=== PATIENT | female | born 1990 ===

== ENCOUNTER 2017-06-13 13:40 | Emergency (ER) | payer MEDICAID ==
[2017-06-13 13:50] VITALS: BP 104/70; RESP 18; TEMP 98; O2SAT 99
[2017-06-13] MEDS ORDERED: Dexamethasone 10 MG in Sodium Chloride 0.9% 50 ML IVPB STA (14:56)
[2017-06-13] MEDS ORDERED: Sodium Chloride 0.9% 1,000 ML IV STA (14:56)
--- NOTE | 2017-06-13 15:07 | ED PDOC ---
HPI: General Adult Time Seen by Provider: 06/13/17 14:01 Chief Complaint (Nursing): ENT Problem History Per: Patient Additional Complaint(s): Pt. states for the past 2 weeks she's had a progressively worsening sore throat. Last night she felt as if her throat was closing and she developed SOB along with R sided non-radiating chest pain. Pt. states she's also felt fatigued over the past 2 weeks. Denies SOB, hemoptysis, leg pain, fever, rash, abdominal pain, N/V/D, trauma, TO, hormonal therapy, rash, hx of allergic reactions. Past Medical History Reviewed: Historical Data, Nursing Documentation, Vital Signs Vital Signs: Last Vital Signs Temp 98 F 06/13/17 13:46 Pulse 71 06/13/17 13:46 Resp 18 06/13/17 13:46 BP 104/70 06/13/17 13:46 Pulse Ox 99 06/13/17 15:09 - Medical History PMH: Gastritis Denies: Chronic Kidney Disease - Family History Family History: States: No Known Family Hx - Immunization History Hx Tetanus Toxoid Vaccination: No (patient not sure of last tetanus) Hx Influenza Vaccination: No Hx Pneumococcal Vaccination: No - Home Medications Home Medications: Ambulatory Orders Medication Instructions Recorded Cephalexin [Keflex] 500 mg PO TID #21 tab 07/30/15 oxyCODONE/Acetaminophen [Percocet 1 tab PO Q6H PRN #20 tab 07/30/15 5/325 mg Tab] Nitrofurantoin Macrocrystals 100 mg PO BID #20 cap 05/29/17 [Macrobid] Phenazopyridine [Pyridium] 200 mg PO BID #6 tab 05/29/17 Naproxen [Naprosyn] 500 mg PO BID PRN #30 tab 06/13/17 - Allergies Allergies/Adverse Reactions: Allergies Allergy/AdvReac Type Severity Reaction Status Date / Time No Known Allergies Allergy Verified 06/13/17 13:46 Review of Systems ROS Statement: Except As Marked, All Systems Reviewed And Found Negative ENT: Positive for: Throat Pain Cardiovascular: Positive for: Chest Pain Respiratory: Positive for: Shortness of Breath Physical Exam - Physical Exam Appears: Positive for: Well, Non-toxic, No Acute Distress Skin: Positive for: Normal Color, Warm. Negative for: Rash Eye Exam: Positive for: EOMI, Normal appearance, PERRL ENT: Positive for: Normal ENT Inspection, TM Is/Are (non-erythematous, non- bulging b/l.). Negative for: Pharyngeal Erythema, Tonsillar Exudate, Tonsillar Swelling Neck: Positive for: Normal, Painless ROM Cardiovascular/Chest: Positive for: Regular Rate, Rhythm, Chest Non Tender Respiratory: Positive for: Normal Breath Sounds. Negative for: Accessory Muscle Use, Wheezing, Respiratory Distress Gastrointestinal/Abdominal: Positive for: Normal Exam, Bowel Sounds, Soft. Negative for: Tenderness, Organomegaly Back: Positive for: Normal Inspection. Negative for: L CVA Tenderness, R CVA Tenderness Extremity: Positive for: Normal ROM Neurologic/Psych: Positive for: Alert, Oriented, Other (able to swallow saliva) . Negative for: Aphasia, Facial Droop - Laboratory Results Result Diagrams: 06/13/17 15:30 06/13/17 15:30 - ECG ECG: Positive for: Interpreted By Me ECG Rhythm: Positive for: Sinus Rhythm. Negative for: ST/T Changes Rate: 70 O2 Sat by Pulse Oximetry: 99 - Radiology X-Ray: Interpreted by Me (CXR, neck soft tissue x-ray) X-Ray Interpretation: No Acute Disease - Progress ED Course And Treament: Labs ordered. Decadron 1mg IV given. Neck soft tissue, CXR ordered. Re-evaluation Time: 17:39 (Speaking in full sentences. No distress. ) Condition: Re-examined, Improved Disposition - Clinical Impression Clinical Impression: Chest wall pain, Sore throat (viral) - Patient ED Disposition Is Patient to be Admitted: No - Disposition Referrals: [facility] [Outside] Disposition: Routine/Home Disposition Time: 17:40 Condition: IMPROVED Prescriptions: Naproxen [Naprosyn] 500 mg PO BID PRN #30 tab PRN Reason: Pain Instructions: Chest Wall Pain (ED) Forms: [employer] ([employer]), [facility] ED School/Work Excuse Print Language: WOLOF
[2017-06-13 15:43] LABS: BASO % 0.3 % (0.0-2.0); EOS % 0.3 % (0.0-4.0); HEMOGLOBIN 12.5 g/dL (12.0-16.0); LYMPH # 1.8 K/uL (1.0-4.3); LYMPH % 16.7 % (20.0-40.0); MEAN CORPUSCULAR HGB CONC 32.1 g/dL (33.0-37.0); MEAN PLATELET VOLUME 8.5 fl (7.2-11.7); MONO # 0.9 K/uL (0.0-0.8); MONO % 8.6 % (0.0-10.0); NEUT % 74.1 % (50.0-75.0); RBC 4.46 Mil/uL (3.80-5.20); RED CELL DISTRIBUTION WIDTH 12.8 % (11.5-14.5); WHITE BLOOD COUNT 10.7 K/uL (4.8-10.8)
[2017-06-13 15:54] LABS: ALB/GLOB RATIO 1.5 (1.0-2.1); ALBUMIN 4.6 g/dL (3.5-5.0); ALT/SGPT 39 U/L (9-52); AST/SGOT 32 U/L (14-36); BLOOD UREA NITROGEN 13 mg/dl (7-17); CALCIUM 9.7 mg/dL (8.4-10.2); GFR AFRICAN-AMERICAN > 60; GFR NON-AFRICAN AMERICAN > 60
[2017-06-13] MEDS ORDERED: Dexamethasone 4 mg/1 ml ONE (15:58)
--- NOTE | 2017-06-13 16:57 | RAD ---
HISTORY: chest pain COMPARISON: 01/04/2013. TECHNIQUE: Chest PA and lateral FINDINGS: LUNGS: No active pulmonary disease. PLEURA: No significant pleural effusion identified. No pneumothorax apparent. CARDIOVASCULAR: Normal. OSSEOUS STRUCTURES: No significant abnormalities. VISUALIZED UPPER ABDOMEN: Normal. OTHER FINDINGS: None. IMPRESSION: No active disease. No significant interval change compared to the prior examination(s).
--- NOTE | 2017-06-13 16:57 | RAD ---
PROCEDURE: Radiographs of the neck (soft tissue). HISTORY: Chest pain and difficulty breathing COMPARISON: None. TECHNIQUE: Frontal and Lateral Radiographs of the neck, optimized for soft tissue visualization. FINDINGS: SOFT TISSUES: Unremarkable. No radiopaque foreign body seen. CERVICAL SPINE: Grossly unremarkable. OTHER FINDINGS: None. IMPRESSION: Unremarkable radiographs of the soft tissues of the neck. No preliminary report provided by emergency department personnel.
[2017-06-13 17:41] VITALS: PULSE 70
--- NOTE | 2017-06-14 14:20 | CARD ---
APPROVED REPORT EKG Measurement Heart [id number] <Conclusion> Normal sinus rhythm Normal ECG
== END 2017-06-13 17:56 | disposition home or self-care (01) ==
LOC: H.ER 13:40
DX: R07.89 Other chest pain (principal); J02.9 Acute pharyngitis, unspecified

== ENCOUNTER 2017-10-24 20:50 | Emergency (ER) | payer MEDICAID ==
[2017-10-24 21:00] VITALS: BP 138/85; PULSE 97; RESP 18; TEMP 98.2; O2SAT 97
[2017-10-24] MEDS ORDERED: Sodium Chloride 0.9% 1,000 ML IV STA (21:05)
--- NOTE | 2017-10-24 21:34 | ED PDOC ---
HPI: Abdomen Time Seen by Provider: 10/24/17 21:03 Chief Complaint (Nursing): GI Problem Chief Complaint (Provider): GI Problem History Per: Patient History/Exam Limitations: no limitations Onset/Duration Of Symptoms: Days (x1) Current Symptoms Are (Timing): Still Present Additional Complaint(s): 27 y/o female presents to the emergency department with a complaint of abdominal pain, nausea, vomiting, and diarrhea x1 day. Reports experiencing multiple episodes of vomiting and diarrhea since 1500 with epigastric pain since early this morning. States she had 5 episodes of both bilious vomiting ( non-bloody) and diarrhea (non-blood). Denies any further medical complaints. Past Medical History Reviewed: Historical Data, Nursing Documentation, Vital Signs Vital Signs: Last Vital Signs Temp 98.2 F 10/24/17 20:55 Pulse 97 H 10/24/17 20:55 Resp 18 10/24/17 20:55 BP 138/85 10/24/17 20:55 Pulse Ox 97 10/25/17 03:43 - Medical History PMH: Gastritis Denies: Chronic Kidney Disease - Surgical History Surgical History: No Surg Hx - Family History Family History: States: Unknown Family Hx - Immunization History Hx Tetanus Toxoid Vaccination: No (patient not sure of last tetanus) Hx Influenza Vaccination: No Hx Pneumococcal Vaccination: No - Home Medications Home Medications: Ambulatory Orders Medication Instructions Recorded Cephalexin [Keflex] 500 mg PO TID #21 tab 07/30/15 oxyCODONE/Acetaminophen [Percocet 1 tab PO Q6H PRN #20 tab 07/30/15 5/325 mg Tab] Nitrofurantoin Macrocrystals 100 mg PO BID #20 cap 05/29/17 [Macrobid] Phenazopyridine [Pyridium] 200 mg PO BID #6 tab 05/29/17 Naproxen [Naprosyn] 500 mg PO BID PRN #30 tab 06/13/17 Dicyclomine [Bentyl] 20 mg PO Q12 PRN #20 tab 10/25/17 Ondansetron ODT [Zofran ODT] 4 mg PO Q6H PRN #16 odt 10/25/17 metroNIDAZOLE [Flagyl] 500 mg PO Q12 #14 tab 10/25/17 - Allergies Allergies/Adverse Reactions: Allergies Allergy/AdvReac Type Severity Reaction Status Date / Time No Known Allergies Allergy Verified 06/13/17 13:46 Review of Systems ROS Statement: Except As Marked, All Systems Reviewed And Found Negative Gastrointestinal: Positive for: Nausea, Vomiting (5 episodes of bilious vomit ) , Abdominal Pain, Diarrhea. Negative for: Hematochezia, Hematemesis Physical Exam - Reviewed Nursing Documentation Reviewed: Yes Vital Signs Reviewed: Yes - Physical Exam Appears: Positive for: Non-toxic, Uncomfortable Head Exam: Positive for: ATRAUMATIC, NORMAL INSPECTION, NORMOCEPHALIC Skin: Positive for: Normal Color, Warm, Dry Cardiovascular/Chest: Positive for: Tachycardia (Regular rhythm). Negative for : Regular Rate, Rhythm, Murmur Respiratory: Positive for: Normal Breath Sounds. Negative for: Accessory Muscle Use, Respiratory Distress Gastrointestinal/Abdominal: Positive for: Soft, Tenderness (Epigastric region). Negative for: Normal Exam Neurologic/Psych: Positive for: Alert, Oriented (x3) - Laboratory Results Result Diagrams: 10/24/17 22:15 10/24/17 22:15 - ECG O2 Sat by Pulse Oximetry: 97 (RA) Pulse Ox Interpretation: Normal Medical Decision Making Medical Decision Making: Time: 2104 Initial Impression: 27 y/o female with vomiting, diarrhea, and abdominal pain Initial Plan: --CMP --Lipase --Urine DIP & Preg --CBC w/ diff --Bentyl 20 mg PO --Pepcid 20 mg IV --Sodium Chloride 1L IV --Zofran 4 mg IV --AccuCheck --Urinalysis --Gallbladder (Abdomen Limited) US --Reevaluation Time: 2213 --Abdomen US FINDINGS: Liver: Normal echogenicity. No mass. No intrahepatic bile duct dilatation. Gallbladder: No gallstones. No wall thickening. No pericholecystic fluid. No sonographic Daniel's sign. Common bile duct: No dilatation. No stones. Pancreas: Unremarkable as visualized. Right kidney: Normal echogenicity. No hydronephrosis. IMPRESSION: 1. No acute findings. Scribe~Attestation: Documented by Camelia Monge, acting as a scribe for Jutsin Valencia MD. Provider Scribe~Attestation: All medical record entries made by the Scribe were at my direction and personally dictated by me. I have reviewed the chart and agree that the record accurately reflects my personal performance of the history, physical exam, medical decision making, and the department course for this patient. I have also personally directed, reviewed, and agree with the discharge instructions and disposition. Time: 02:57 Abdomen/Pelvis CT FINDINGS: Lower thorax: Bibasilar lingular nonspecific infiltrates are present, consistent with atelectasis or pneumonia. ABDOMEN: Liver: Fatty liver. Gallbladder and bile ducts: Unremarkable. No ductal dilation. Pancreas: Unremarkable. No mass. No ductal dilation. Spleen: Unremarkable. No splenomegaly. Adrenals: Unremarkable. No mass. Kidneys and ureters: Unremarkable. No solid mass. No hydronephrosis. Stomach and bowel: There is colonic fluid and nonspecific thickening. Correlation with clinical data is recommended if nonspecific colitis as clinically suspected. Diverticulosis. No obstruction. Appendix: The appendix is not well-seen. Normal appendix. PELVIS: Bladder: Partially distended bladder. Reproductive: Endometrial stripe thickening and/or fluid. There is hypodensity of the endometrium extending into the myometrium seen on image 91 series 602.Prominent lower uterine segment. Correlation with gynecology history, non-emergent clinical examination and/or Pap smear may be helpful if clinically indicated. ABDOMEN and PELVIS: Intraperitoneal space: Unremarkable. No free air. No significant fluid collection. Bones/joints: No acute fracture. No dislocation. Soft tissues: There is a fat-containing umbilical hernia. Vasculature: Unremarkable. No abdominal aortic aneurysm. Lymph nodes: Unremarkable. No enlarged lymph nodes. IMPRESSION: 1.Endometrial stripe thickening and/or fluid. There is hypodensity of the endometrium extending into the myometrium seen on image 91 series 602.Prominent lower uterine segment. Correlation with gynecology history, non-emergent clinical examination and/or Pap smear may be helpful if clinically indicated. 2.There is colonic fluid and nonspecific thickening. Correlation with clinical data is recommended if nonspecific colitis as clinically suspected. Time: 03:35 Upon provider reevaluation patient showed improvements in symptoms and no clinically significant abnormalities were observed. Patient will be discharged home with Rx for Betyl 20mg PO, Flagyl 500mg PO and Zofran 4mg PO. Clinical Impression: Colitis Scribe Attestation: Documented by Aury Wilder acting as a scribe for Justin Valencia MD. MD Rust Attestation: All medical record entries made by the Scribe were at my direction and personally dictated by me. I have reviewed the chart and agree that the record accurately reflects my personal performance of the history, physical exam, medical decision making, and the department course for this patient. I have also personally directed, reviewed, and agree with the discharge instructions and disposition. Disposition - Clinical Impression Clinical Impression: Colitis - Disposition Disposition: Routine/Home Disposition Time: 03:35 Condition: STABLE Prescriptions: Dicyclomine [Bentyl] 20 mg PO Q12 PRN #20 tab PRN Reason: abdominal pain/diarrhea metroNIDAZOLE [Flagyl] 500 mg PO Q12 #14 tab Ondansetron ODT [Zofran ODT] 4 mg PO Q6H PRN #16 odt PRN Reason: Nausea/Vomiting Instructions: Colitis (ED) Forms: [employer] ([place])
--- NOTE | 2017-10-24 22:14 | US ---
EXAM: US Abdomen Limited, Right Upper Quadrant CLINICAL HISTORY: 27 years old, female; Pain; Abdominal pain; Epigastric TECHNIQUE: Real-time ultrasound of the right upper quadrant with image documentation. COMPARISON: No relevant prior studies available. FINDINGS: Liver: Normal echogenicity. No mass. No intrahepatic bile duct dilatation. Gallbladder: No gallstones. No wall thickening. No pericholecystic fluid. No sonographic Daniel's sign. Common bile duct: No dilatation. No stones. Pancreas: Unremarkable as visualized. Right kidney: Normal echogenicity. No hydronephrosis. IMPRESSION: 1.No acute findings.
[2017-10-24 22:23] LABS: BASO # 0.1 K/uL (0.0-0.2); BASO % 0.4 % (0.0-2.0); EOS % 0.1 % (0.0-4.0); HEMATOCRIT 42.4 % (34.0-47.0); LYMPH # 0.6 K/uL (1.0-4.3); LYMPH % 3.8 % (20.0-40.0); MEAN CELL VOLUME 86.3 fl (81.0-99.0); MEAN CORPUSCULAR HEMOGLOBIN 27.7 pg (27.0-31.0); MEAN CORPUSCULAR HGB CONC 32.1 g/dL (33.0-37.0); MEAN PLATELET VOLUME 8.3 fl (7.2-11.7); MONO # 0.9 K/uL (0.0-0.8); MONO % 5.9 % (0.0-10.0); NEUT # 13.5 K/uL (1.8-7.0); NEUT % 89.8 % (50.0-75.0); NRBC % 0.1 % (0.0-0.0); PLATELET COUNT 333 K/uL (130-400); RED CELL DISTRIBUTION WIDTH 12.8 % (11.5-14.5); WHITE BLOOD COUNT 15.1 K/uL (4.8-10.8)
[2017-10-24 22:29] LABS: RBC URINE 4 /hpf (0-3); URINE BACTERIA RARE (<OCC); URINE BILIRUBIN NEGATIVE (NEGATIVE); URINE BLOOD NEGATIVE (NEGATIVE); URINE COLOR YELLOW (YELLOW); URINE GLUCOSE (UA) NEG (Normal); URINE KETONE TRACE mg/dL (NEGATIVE); URINE LEUKOCYTE ESTERASE SMALL Leu/uL (Negative); URINE PROTEIN 30 mg/dL (NEGATIVE); URINE UROBILINOGEN 0.2-1.0 mg/dL (0.2-1.0)
[2017-10-24 22:34] LABS: ALKALINE PHOSPHATASE 68 U/L (38-126); ALT/SGPT 44 U/L (9-52); AST/SGOT 35 U/L (14-36); BILIRUBIN,TOTAL 0.4 mg/dl (0.2-1.3); BLOOD UREA NITROGEN 16 mg/dl (7-17); CALCIUM 9.8 mg/dL (8.4-10.2); CARBON DIOXIDE 26 mmol/L (22-30); CHLORIDE 104 mmol/L (98-107); GFR AFRICAN-AMERICAN > 60; GLUCOSE,RANDOM 124 mg/dL (65-105); LIPASE 81 U/L (23-300); POTASSIUM 3.9 MMOL/L (3.6-5.0); SODIUM 143 mmol/l (132-148); TOTAL PROTEIN 9.1 G/DL (6.3-8.2)
[2017-10-24 22:38] LABS: WBC URINE 10 /hpf (0-5)
[2017-10-24 23:00] LABS: ALB/GLOB RATIO 1.3 (1.0-2.1)
[2017-10-24] MEDS ORDERED: Alum-Mag Hydrox-Simethicone Susp (30 mL) PO STA (23:06)
[2017-10-24 23:37] LABS: NEUTROPHIL 84 % (42-75); TOTAL CELLS COUNTED 100
[2017-10-25] MEDS ORDERED: Iohexol 240 (50 ml) PO ONE (00:06)
[2017-10-25] MEDS ORDERED: Morphine 4 MG/ML VIAL IVP ONE (00:07)
[2017-10-25] MEDS ORDERED: Morphine 4 MG/ML VIAL ONE (00:17)
[2017-10-25] MEDS ORDERED: Iohexol 300 100 ML IJ ONE (02:14)
--- NOTE | 2017-10-25 02:57 | CT ---
EXAM: CT Abdomen and Pelvis With Intravenous Contrast CLINICAL HISTORY: 27 years old, female; Pain; Abdominal pain; Epigastric; Additional info: Abd pain TECHNIQUE: Axial computed tomography images of the abdomen and pelvis with intravenous contrast. All CT scans at this facility use one or more dose reduction techniques, viz.: automated exposure control; ma/kV adjustment per patient size (including targeted exams where dose is matched to indication; i.e. head); or iterative reconstruction technique. Oral contrast was administered. Axial images are submitted and lung windows. Coronal and sagittal reformatted images were created and reviewed. CONTRAST: 90 mL of [id number] administered intravenously. COMPARISON: CT - ABD PELVIS PO IV CONTRAST 2016-06-20 08:49 FINDINGS: Lower thorax: Bibasilar lingular nonspecific infiltrates are present, consistent with atelectasis or pneumonia. ABDOMEN: Liver: Fatty liver. Gallbladder and bile ducts: Unremarkable. No ductal dilation. Pancreas: Unremarkable. No mass. No ductal dilation. Spleen: Unremarkable. No splenomegaly. Adrenals: Unremarkable. No mass. Kidneys and ureters: Unremarkable. No solid mass. No hydronephrosis. Stomach and bowel: There is colonic fluid and nonspecific thickening. Correlation with clinical data is recommended if nonspecific colitis as clinically suspected. Diverticulosis. No obstruction. Appendix: The appendix is not well-seen. Normal appendix. PELVIS: Bladder: Partially distended bladder. Reproductive: Endometrial stripe thickening and/or fluid. There is hypodensity of the endometrium extending into the myometrium seen on image 91 series 602.Prominent lower uterine segment. Correlation with gynecology history, non-emergent clinical examination and/or Pap smear may be helpful if clinically indicated. ABDOMEN and PELVIS: Intraperitoneal space: Unremarkable. No free air. No significant fluid collection. Bones/joints: No acute fracture. No dislocation. Soft tissues: There is a fat-containing umbilical hernia. Vasculature: Unremarkable. No abdominal aortic aneurysm. Lymph nodes: Unremarkable. No enlarged lymph nodes. IMPRESSION: 1. Endometrial stripe thickening and/or fluid. There is hypodensity of the endometrium extending into the myometrium seen on image 91 series 602.Prominent lower uterine segment. Correlation with gynecology history, non-emergent clinical examination and/or Pap smear may be helpful if clinically indicated. 2. There is colonic fluid and nonspecific thickening. Correlation with clinical data is recommended if nonspecific colitis as clinically suspected.
== END 2017-10-25 04:33 | disposition home or self-care (01) ==
LOC: H.ER 20:50
DX: K52.9 Noninfective gastroenteritis and colitis, unspecified (principal); Z36.9 Encounter for antenatal screening, unspecified
CPT/HCPCS: 74177; 76705; 80053; 81003; 81025; 82948; 83690; 85025; 96361; 96374; 96375; 99283; J1885; J2270; J2405; J7040; Q9966; Q9967

== ENCOUNTER 2018-01-17 13:42 | Emergency (ER) | payer MEDICAID ==
--- NOTE | 2018-01-17 14:21 | ED PDOC ---
HPI: Female Pain Time Seen by Provider: 01/17/18 13:51 Chief Complaint (Nursing): Abdominal Pain Chief Complaint (Provider): Pelvic pain History Per: Patient History/Exam Limitations: no limitations Onset/Duration Of Symptoms: Days (2) Additional Complaint(s): Pt reports pelvic pain X 2 days, "uncomfortable", associated with nausea and increased urination. Denies fever, vomiting, constipation, diarrhea, dysuria, hematuria, vaginal bleeding, vaginal discharge. Took test at home last week that was negative. Abnormal Vaginal Bleeding: No Past Medical History Reviewed: Nursing Documentation, Vital Signs Vital Signs: Last Vital Signs Temp 97.9 F 01/17/18 13:44 Pulse 77 01/17/18 13:44 Resp 18 01/17/18 13:44 BP 121/77 01/17/18 13:44 Pulse Ox 98 01/17/18 13:44 - Medical History PMH: Gastritis Denies: Chronic Kidney Disease - Surgical History Surgical History: No Surg Hx - Family History Family History: States: Unknown Family Hx - Social History Current smoker - smoking cessation education provided: No Alcohol: None - Immunization History Hx Tetanus Toxoid Vaccination: No (patient not sure of last tetanus) Hx Influenza Vaccination: No Hx Pneumococcal Vaccination: No - Home Medications Home Medications: Ambulatory Orders Medication Instructions Recorded Ibuprofen [Motrin] 600 mg PO Q6H PRN #20 tab 01/17/18 - Allergies Allergies/Adverse Reactions: Allergies Allergy/AdvReac Type Severity Reaction Status Date / Time No Known Allergies Allergy Verified 01/17/18 13:44 Review of Systems Constitutional: Negative for: Fever, Chills Cardiovascular: Negative for: Chest Pain Respiratory: Negative for: Cough, Shortness of Breath Gastrointestinal: Positive for: Nausea. Negative for: Vomiting, Abdominal Pain , Diarrhea Genitourinary Female: Positive for: Frequency, Pelvic Pain. Negative for: Dysuria, Hematuria, Vaginal Discharge, Vaginal Bleeding Skin: Negative for: Rash, Lesions Neurological: Negative for: Headache Physical Exam - Reviewed Nursing Documentation Reviewed: Yes Vital Signs Reviewed: Yes - Physical Exam Appears: Positive for: Well, No Acute Distress Skin: Positive for: Normal Color, Warm, Dry Eye Exam: Positive for: Normal appearance, EOMI, PERRL Cardiovascular/Chest: Positive for: Regular Rate, Rhythm Respiratory: Positive for: Normal Breath Sounds Gastrointestinal/Abdominal: Positive for: Normal Exam, Bowel Sounds, Soft. Negative for: Tenderness, Guarding, Rebound Back: Positive for: Normal Inspection. Negative for: L CVA Tenderness, R CVA Tenderness Extremity: Positive for: Normal ROM Neurologic/Psych: Positive for: Alert, Oriented - ECG O2 Sat by Pulse Oximetry: 98 Medical Decision Making Medical Decision Makin yo female with pelvic pain, nausea and increased urination. - u preg - u dip - pelvic ultrasound Accession No. : [id number] Patient Name / ID : CAILIN PUGH / [id number] Exam Date : 01/17/2018 17:21:56 ( Approved ) Study Comment : Sex / Age : F / 28Y Creator : George Serra MD Dictator : George Serra MD Tape Calender : Vegetable Harvest Worker : George Serra MD Approver2 : Report Date : 01/18/2018 10:23:20 My Comment : PROCEDURE: HISTORY: Pelvic pain COMPARISON: TECHNIQUE: FINDINGS: The uterus measures 8.7 x 5.0 x 5.0 centimeters. The endometrium measures 14 millimeters. The right ovary measures 3.0 x 2.1 x 1.2 centimeters contains hemorrhagic follicle measuring 1.7 centimeters. Left ovary measures 2.0 x 1.2 x 1.4 centimeters. There is no free fluid the pelvis per IMPRESSION: 1.7 centimeter right ovarian hemorrhagic follicle. Disposition - Clinical Impression Clinical Impression: Pelvic pain - Disposition Referrals: [facility] [Outside] Disposition: Routine/Home Disposition Time: 18:49 Condition: STABLE Prescriptions: Ibuprofen [Motrin] 600 mg PO Q6H PRN #20 tab PRN Reason: Pain, Moderate (4-7) Instructions: Acute Pelvic Pain Forms: [employer] (Chinese)
[2018-01-17 16:10] LABS: SQUAMOUS EPITHIAL 7 /hpf (0-5); URINE BILIRUBIN NEGATIVE (NEGATIVE); URINE BLOOD NEGATIVE (NEGATIVE); URINE CLARITY CLOUDY (Clear); URINE COLOR YELLOW (YELLOW); URINE GLUCOSE (UA) NEG (Normal); URINE LEUKOCYTE ESTERASE NEG Leu/uL (Negative); URINE PROTEIN NEGATIVE (NEGATIVE); URINE UROBILINOGEN 0.2-1.0 mg/dL (0.2-1.0)
[2018-01-17 18:16] VITALS: BP 115/80; PULSE 75; RESP 16; TEMP 98.1
--- NOTE | 2018-01-18 10:24 | US ---
PROCEDURE: HISTORY: Pelvic pain COMPARISON: TECHNIQUE: FINDINGS: The uterus measures 8.7 x 5.0 x 5.0 centimeters. The endometrium measures 14 millimeters. The right ovary measures 3.0 x 2.1 x 1.2 centimeters contains hemorrhagic follicle measuring 1.7 centimeters. Left ovary measures 2.0 x 1.2 x 1.4 centimeters. There is no free fluid the pelvis per IMPRESSION: 1.7 centimeter right ovarian hemorrhagic follicle.
[2018-01-18 10:49] VITALS: O2SAT 98
== END 2018-01-17 19:03 | disposition home or self-care (01) ==
LOC: H.ER 13:42
DX: N83.01 Follicular cyst of right ovary (principal)

== ENCOUNTER 2018-06-16 15:33 | Emergency (ER) | payer MEDICAID ==
[2018-06-16] MEDS ORDERED: Famotidine 40 MG/5 ML PO STA (16:15)
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
--- NOTE | 2018-06-16 16:46 | RAD ---
Date of service: 06/16/2018 PROCEDURE: CHEST RADIOGRAPH, 1 VIEW HISTORY: chest pain following endoscopy COMPARISON: Room 06/13/2017 FINDINGS: LUNGS: Clear. PLEURA: No pneumothorax or pleural fluid seen. CARDIOVASCULAR: Normal. OSSEOUS STRUCTURES: No significant abnormalities. VISUALIZED UPPER ABDOMEN: Normal. OTHER FINDINGS: None. IMPRESSION: No active disease. No acute/significant interval changes.
[2018-06-16] MEDS: Famotidine 40 MG/5 ML PO STA (16:56)
[2018-06-16 17:25] LABS: BASO % 0.4 % (0.0-2.0); EOS % 0.3 % (0.0-4.0); LYMPH % 28.1 % (20.0-40.0); MEAN CELL VOLUME 85.3 fl (81.0-99.0); MEAN CORPUSCULAR HEMOGLOBIN 28.1 pg (27.0-31.0); MEAN CORPUSCULAR HGB CONC 32.9 g/dL (33.0-37.0); MEAN PLATELET VOLUME 8.3 fl (7.2-11.7); MONO # 0.8 K/uL (0.0-0.8); MONO % 7.3 % (0.0-10.0); NEUT # 6.8 K/uL (1.8-7.0); NEUT % 63.9 % (50.0-75.0); RBC 4.27 Mil/uL (3.80-5.20); RED CELL DISTRIBUTION WIDTH 13.1 % (11.5-14.5); WHITE BLOOD COUNT 10.6 K/uL (4.8-10.8)
[2018-06-16 17:34] LABS: ALB/GLOB RATIO 1.4 (1.0-2.1); ALBUMIN 4.3 g/dL (3.5-5.0); ALT/SGPT 36 U/L (9-52); AST/SGOT 35 U/L (14-36); BLOOD UREA NITROGEN 13 mg/dl (7-17); GFR AFRICAN-AMERICAN > 60; GFR NON-AFRICAN AMERICAN > 60
[2018-06-16 19:37] VITALS: BP 125/67; PULSE 76; RESP 17; TEMP 97.8; O2SAT 100
== END 2018-06-16 19:00 | disposition home or self-care (01) ==
LOC: H.ER 15:33
DX: R07.89 Other chest pain (principal); K21.9 Gastro-esophageal reflux disease without esophagitis; R73.03 Prediabetes

== ENCOUNTER 2018-07-11 17:02 | Emergency (ER) | payer MEDICAID ==
[2018-07-11 17:17] VITALS: BP 111/76; PULSE 91; RESP 18; TEMP 98.8; O2SAT 98
[2018-07-11 17:39] LABS: SQUAMOUS EPITHIAL 7 /hpf (0-5); URINE BACTERIA MANY (<OCC); URINE BILIRUBIN NEGATIVE (NEGATIVE); URINE BLOOD NEGATIVE (NEGATIVE); URINE CLARITY CLOUDY (Clear); URINE COLOR YELLOW (YELLOW); URINE GLUCOSE (UA) NEG (Normal); URINE LEUKOCYTE ESTERASE MOD Leu/uL (Negative); URINE PROTEIN NEGATIVE (NEGATIVE); URINE UROBILINOGEN 0.2-1.0 mg/dL (0.2-1.0)
--- NOTE | 2018-07-11 18:03 | ED PDOC ---
HPI: Female Pain Time Seen by Provider: 07/11/18 17:32 Chief Complaint (Nursing): Female Genitourinary Chief Complaint (Provider): painful urination History Per: Patient History/Exam Limitations: no limitations Onset/Duration Of Symptoms: Days (x3) Additional Complaint(s): Heydi Luu, a 28 year old female with past medical history of herpes, presents to the emergency department with painful urination and foul smelling vaginal discharge onset 3 days ago after sexual intercourse. Patient denies fever or chills. No further medical complaints. Past Medical History Reviewed: Historical Data, Nursing Documentation, Vital Signs Vital Signs: Last Vital Signs Temp 98.8 F 07/11/18 17:15 Pulse 91 H 07/11/18 17:15 Resp 18 07/11/18 17:15 BP 111/76 07/11/18 17:15 Pulse Ox 98 07/11/18 17:15 - Medical History PMH: Gastritis Denies: Chronic Kidney Disease Other PMH: Herpes - Family History Family History: States: Unknown Family Hx - Immunization History Hx Tetanus Toxoid Vaccination: No (patient not sure of last tetanus) Hx Influenza Vaccination: No Hx Pneumococcal Vaccination: No - Home Medications Home Medications: Ambulatory Orders Medication Instructions Recorded Famotidine [Pepcid] 20 mg PO BID #30 tab 01/19/18 Polyethylene Glycol 3350 [Miralax] 17 gm PO DAILY #7 packet 01/19/18 Famotidine [Pepcid] 40 mg PO DAILY #30 tab 06/16/18 Cephalexin [Keflex] 500 mg PO TID #15 capsule 07/11/18 Metronidazole [Flagyl] 500 mg PO BID #14 tablet 07/11/18 Phenazopyridine HCl [Pyridium] 200 mg PO Q12 PRN #6 tablet 07/11/18 - Allergies Allergies/Adverse Reactions: Allergies Allergy/AdvReac Type Severity Reaction Status Date / Time No Known Allergies Allergy Verified 07/11/18 17:15 Review of Systems ROS Statement: Except As Marked, All Systems Reviewed And Found Negative Constitutional: Negative for: Fever, Chills Genitourinary Female: Positive for: Dysuria, Vaginal Discharge (foul smelling) Physical Exam - Reviewed Nursing Documentation Reviewed: Yes Vital Signs Reviewed: Yes - Physical Exam Appears: Positive for: Well, Non-toxic, No Acute Distress Head Exam: Positive for: ATRAUMATIC, NORMAL INSPECTION, NORMOCEPHALIC Cardiovascular/Chest: Positive for: Regular Rate, Rhythm Respiratory: Positive for: Normal Breath Sounds. Negative for: Respiratory Distress Gastrointestinal/Abdominal: Negative for: Tenderness Pelvic Exam: Positive for: External Exam Normal, Speculum Exam Normal, Bimanual Exam Normal, Discharge (MINIMAL VAGINAL DISCHARGE NOTED.). Negative for: Active Bleeding, Tender Adnexa, Tender Uterus Back: Negative for: L CVA Tenderness, R CVA Tenderness - Laboratory Results Urine POC: Negative Urine dip results: Positive for: Leukocyte Esterase, Nitrate. Negative for: Blood, Ketones, Glucose, Bilirubin, Protein - ECG O2 Sat by Pulse Oximetry: 98 (RA) Pulse Ox Interpretation: Normal Medical Decision Making Medical Decision Making: Time: 17:32 Initial Impression: painful urination Initial Plan: --ED urine --ED urine dipstick --Chlamydia/GC RNA --Genital culture --Urine culture --Urinalysis -Urine dip: positive nitrates and traces of leukocyte, negative Scribe Attestation: Documented by Allison Multani, acting as a scribe for Cecile Wilder PA-C. Provider Scribe Attestation: All medical record entries made by the Scribe were at my direction and personally dictated by me. I have reviewed the chart and agree that the record accurately reflects my personal performance of the history, physical exam, medical decision making, and the department course for this patient. I have also personally directed, reviewed, and agree with the discharge instructions and disposition. Disposition - Clinical Impression Clinical Impression: UTI (urinary tract infection), Vaginitis - Patient ED Disposition Is Patient to be Admitted: No - Disposition [facility] Disposition: Routine/Home Disposition Time: 18:15 Condition: FAIR Prescriptions: Cephalexin [Keflex] 500 mg PO TID #15 capsule Metronidazole [Flagyl] 500 mg PO BID #14 tablet Phenazopyridine HCl [Pyridium] 200 mg PO Q12 PRN #6 tablet PRN Reason: Urinary Discomt Instructions: Urinary Tract Infections in Adults, Bacterial Vaginosis (DC)
== END 2018-07-11 18:28 | disposition home or self-care (01) ==
LOC: H.ER 17:02
DX: N39.0 Urinary tract infection, site not specified (principal); N76.0 Acute vaginitis

== ENCOUNTER 2018-08-25 09:59 | Emergency (ER) | payer MEDICAID ==
[2018-08-25 10:04] VITALS: RESP 19
[2018-08-25] MEDS ORDERED: DiphenhydrAMINE 50 mg/ml Inj IVP STA (10:48)
[2018-08-25] MEDS ORDERED: methylPREDNISolone 125 MG in Sodium Chloride 0.9% 50 ML IVPB STA (10:49)
[2018-08-25] MEDS ORDERED: Sodium Chloride 0.9% 500 ML IV ONE (10:50)
--- NOTE | 2018-08-25 10:52 | ED PDOC ---
HPI: General Adult Time Seen by Provider: 08/25/18 10:50 Chief Complaint (Nursing): Abnormal Skin Integrity Chief Complaint (Provider): rash History Per: Patient (28 y/o female here for evaluation of rash that started after insect bite yesterday evening. States she did not feel improvement with 2 doses of benadryl at 7pm and 12 midnights. Notes difficulty with swallowing. Denies any difficulty breathing. No prior allergies.) Past Medical History Reviewed: Historical Data, Nursing Documentation, Vital Signs Vital Signs: Last Vital Signs Temp 98.6 F 08/25/18 10:03 Pulse 106 H 08/25/18 10:03 Resp 19 08/25/18 10:03 BP 127/82 08/25/18 10:03 Pulse Ox 97 08/25/18 10:03 - Medical History PMH: Gastritis Denies: Chronic Kidney Disease - Family History Family History: States: Unknown Family Hx - Immunization History Hx Tetanus Toxoid Vaccination: No Hx Influenza Vaccination: No Hx Pneumococcal Vaccination: No - Home Medications Home Medications: Ambulatory Orders Medication Instructions Recorded Epinephrine [Epipen] 0.3 mg IJ ONCE PRN #2 auto.injct 08/25/18 Famotidine [Pepcid] 20 mg PO BID #10 tab 08/25/18 RX: predniSONE [predniSONE Tab] 3 tab PO DAILY #12 tab 08/25/18 hydrOXYzine Pamoate [Vistaril] 50 mg PO Q6 PRN #24 cap 08/25/18 - Allergies Allergies/Adverse Reactions: Allergies Allergy/AdvReac Type Severity Reaction Status Date / Time No Known Allergies Allergy Verified 08/23/18 19:57 Review of Systems ROS Statement: Except As Marked, All Systems Reviewed And Found Negative Physical Exam - Reviewed Nursing Documentation Reviewed: Yes Vital Signs Reviewed: Yes - Physical Exam Appears: Positive for: Well, Non-toxic, No Acute Distress Head Exam: Positive for: ATRAUMATIC, NORMAL INSPECTION, NORMOCEPHALIC Skin: Positive for: Normal Color, Warm, DRY Eye Exam: Positive for: EOMI, Normal appearance, PERRL ENT: Positive for: Normal ENT Inspection Neck: Positive for: Normal, Painless ROM Cardiovascular/Chest: Positive for: Regular Rate, Rhythm Respiratory: Positive for: CNT, Normal Breath Sounds Gastrointestinal/Abdominal: Positive for: Normal Exam, Soft Back: Positive for: Normal Inspection Extremity: Positive for: Normal ROM Neurologic/Psych: Positive for: Alert, Oriented - ECG O2 Sat by Pulse Oximetry: 97 - Progress ED Course And Treament: solumedrol 125 mg iv x 1 dose pepcid 20 mg iv x 1 dose benadryl 50 mg iv x 1 dose ns 500 ml iv x 1 dose vistaril 50 mg po x 1 dose on re-evaluation as persistent itching noted. Disposition - Clinical Impression Clinical Impression: Allergic reaction to insect bite - Patient ED Disposition Is Patient to be Admitted: No - Disposition Referrals: [facility] [Outside] Disposition: Routine/Home Disposition Time: 15:30 Condition: FAIR Prescriptions: Epinephrine [Epipen] 0.3 mg IJ ONCE PRN #2 auto.injct PRN Reason: Anaphylaxis Famotidine [Pepcid] 20 mg PO BID #10 tab hydrOXYzine Pamoate [Vistaril] 50 mg PO Q6 PRN #24 cap PRN Reason: Itching / Pruritus RX: predniSONE [predniSONE Tab] 3 tab PO DAILY #12 tab Instructions: Insect Allergy Forms: [facility] ED School/Work Excuse
[2018-08-25] MEDS ORDERED: DiphenhydrAMINE 50 mg/ml Inj ONE (10:57)
[2018-08-25 15:42] VITALS: BP 126/76; PULSE 78; TEMP 97.6
[2018-08-25 15:44] VITALS: O2SAT 97
== END 2018-08-25 15:43 | disposition home or self-care (01) ==
LOC: H.ER 09:59
DX: T78.40XA Allergy, unspecified, initial encounter (principal); W57.XXXA Bitten or stung by nonvenomous insect and other nonvenomous arthropods, initial encounter
CPT/HCPCS: 96374; 96375; 99283; J1200; J2930; J7040; Q0177

== ENCOUNTER 2018-12-17 16:36 | Emergency (ER) | payer MEDICAID ==
[2018-12-17 16:45] VITALS: PULSE 78; RESP 20; TEMP 98.3; O2SAT 98
--- NOTE | 2018-12-17 18:19 | ED PDOC ---
HPI: Abdomen Time Seen by Provider: 12/17/18 17:40 Chief Complaint (Nursing): Abdominal Pain Chief Complaint (Provider): LLQ pain History Per: Patient History/Exam Limitations: no limitations Additional Complaint(s): Pt reports LLQ pain X 4 days, intermittent, associated with increased urination. Denies fever, nausea, vomiting, constipation, diarrhea, dysuria, hematuria, vaginal bleeding, vaginal discharge. Pt eating chips. Abnormal Vaginal Bleeding: No Past Medical History Reviewed: Nursing Documentation, Vital Signs Vital Signs: Last Vital Signs Temp 98.3 F 12/17/18 16:43 Pulse 78 12/17/18 16:43 Resp 20 12/17/18 16:43 BP Pulse Ox 98 12/17/18 16:43 - Medical History PMH: Gastritis Denies: Chronic Kidney Disease - Surgical History Surgical History: No Surg Hx - Family History Family History: States: Unknown Family Hx - Social History Current smoker - smoking cessation education provided: No Alcohol: None - Immunization History Hx Tetanus Toxoid Vaccination: No Hx Influenza Vaccination: No Hx Pneumococcal Vaccination: No - Home Medications Home Medications: Ambulatory Orders Medication Instructions Recorded Epinephrine [Epipen] 0.3 mg IJ ONCE PRN #2 auto.injct 08/25/18 Famotidine [Pepcid] 20 mg PO BID #10 tab 08/25/18 hydrOXYzine Pamoate [Vistaril] 50 mg PO Q6 PRN #24 cap 08/25/18 predniSONE [predniSONE Tab] 3 tab PO DAILY #12 tab 08/25/18 Naproxen [Naprosyn] 500 mg PO BID PRN #15 tablet 12/17/18 - Allergies Allergies/Adverse Reactions: Allergies Allergy/AdvReac Type Severity Reaction Status Date / Time No Known Allergies Allergy Verified 12/17/18 16:43 Review of Systems Constitutional: Negative for: Fever, Chills Cardiovascular: Negative for: Chest Pain Respiratory: Negative for: Cough, Shortness of Breath Gastrointestinal: Positive for: Abdominal Pain. Negative for: Nausea, Vomiting, Diarrhea Genitourinary Female: Positive for: Frequency. Negative for: Dysuria, Hematuria, Vaginal Discharge, Vaginal Bleeding Musculoskeletal: Negative for: Neck Pain, Back Pain Skin: Negative for: Rash, Lesions Neurological: Negative for: Headache, Dizziness Physical Exam - Reviewed Nursing Documentation Reviewed: Yes Vital Signs Reviewed: Yes - Physical Exam Appears: Positive for: Well, No Acute Distress Skin: Positive for: Normal Color, Warm, Dry Eye Exam: Positive for: Normal appearance, EOMI, PERRL Cardiovascular/Chest: Positive for: Regular Rate, Rhythm Respiratory: Positive for: Normal Breath Sounds Gastrointestinal/Abdominal: Positive for: Bowel Sounds, Soft, Tenderness (LLQ). Negative for: Mass, Distended, Guarding, Rebound, Hernia Back: Positive for: Normal Inspection. Negative for: L CVA Tenderness, R CVA Tenderness Extremity: Positive for: Normal ROM Neurologic/Psych: Positive for: Alert, Oriented - ECG O2 Sat by Pulse Oximetry: 98 Medical Decision Making Medical Decision Makin yo female with LLQ pain. - labs - pelvic ultrasound EXAM: US Pelvis, Complete Transvaginal and Transabdominal COMPARISON: None provided. CLINICAL HISTORY: L pelvic pain TECHNIQUE: Transvaginal and transabdominal pelvic ultrasound (complete) with image documentation. FINDINGS: ENDOMETRIUM: The endometrial echo complex measured 8.7 mm in AP dimension. UTERUS/CERVIX: The uterus anteverted in position andwithin normal size limits measuring approximately 7.9 x 4.5 x 6.3 cm in longitudinal, AP and transverse dimensions respectively. No uterine fibroid or other mass evident. Incidental note is made of a couple of small Nabothian cysts on the cervical os. RIGHT OVARY: Normal Doppler flow. No abnormal mass. Normal size measuring 2.8 x 2.1 x 2.7 cm in longitudinal, AP and transverse dimensions respectively. The estimated right ovarian volume is 8.3 cm. Within the right ovary there is demonstration of a 2.2 x 1.6 x 2.0 cm simple cyst. An additional tiny follicle is identified. LEFT OVARY: Normal Doppler flow. No abnormal mass. Normal size measuring approximately 2.4 x 1.4 x 1.5 cm in longitudinal, AP and transverse dimensions respectively. The estimated left ovarian volume is 2.6 cm. A solitary tiny follicle is noted within the left ovary. FREE FLUID: No free fluid. IMPRESSION: 1. A 2.2 x 1.6 x 2.0 cm simple cyst is noted within the right ovary. 2. Tiny solitary bilateral ovarian follicles are also noted. 3. A couple of Nabothian cysts are seen on the cervical os. Electronically signed on Dec 17, 2018 7:44:31 PM EST by: Ramy Henao M.D., SHA Certified By ABR & CBC[employer] Fellowship Trained MRI and CT Specialist Disposition - Clinical Impression Clinical Impression: Pelvic pain in female - Disposition Referrals: Aura Coleman MD [Family Provider] - Disposition: Routine/Home Disposition Time: 21:00 Condition: STABLE Prescriptions: Naproxen [Naprosyn] 500 mg PO BID PRN #15 tablet PRN Reason: Pain, Moderate (4-7) Instructions: Acute Pelvic Pain Forms: [employer] ([place])
--- NOTE | 2018-12-18 16:53 | US ---
Date of service: 12/17/2018 HISTORY: L pelvic pain COMPARISON: None available. TECHNIQUE: Transvaginal FINDINGS: UTERUS: Measures 7.9 x 6.3 x 4.5 cm. Retroverted. No uterine mass. ENDOMETRIUM: Measures 9 mm in diameter. Unremarkable. CERVIX: No cervical abnormality identified. RIGHT OVARY: Measures 2.1 x 2.7 x 2.8 cm. No solid mass. Normal flow. Simple cyst, 2.2 cm diameter. Likely physiologic. LEFT OVARY: Measures 2.4 x 1.5 x 1.4 cm. No solid mass. Normal flow. FREE FLUID: No significant free fluid noted. OTHER FINDINGS: None. IMPRESSION: 2.2 cm simple right ovarian cyst, likely physiologic. Otherwise unremarkable examination. The preliminary findings for this examination were reported by [facility] at 7:44 p.m. on 12/17/2018. There is concurrence of this report with the preliminary findings.
== END 2018-12-17 21:20 | disposition home or self-care (01) ==
LOC: H.ER 16:36
DX: R10.2 Pelvic and perineal pain (principal)